=== PATIENT | female | born 1995 | race Caucasian/White ===

== ENCOUNTER 2018-02-05 19:22 | Emergency (ER) | payer OTHER ==
[~2018-02-05] VITALS: Ht 157.5 cm; Wt 63.2 kg
[2018-02-05 19:27] VITALS: Ht 157.5 cm; Wt 63.2 kg
[2018-02-05 20:31] VITALS: TEMP 36.6
[2018-02-05] MEDS ORDERED: BCPILLS PO (21:35)
[2018-02-05] MEDS ORDERED: DULO-24 PO (21:35)
[2018-02-05] MEDS ORDERED: CEFTRIAXONE SOD 350MG/ML 1 GM VIAL IM STA (23:08)
[2018-02-05] MEDS ORDERED: EMTRICITABINE/TENOFOVIR TAB PO STA (23:08)
[2018-02-05] MEDS ORDERED: METRONIDAZOLE 250 MG TAB PO STA (23:08)
[2018-02-05] MEDS ORDERED: AZITHROMYCIN 250 MG TAB PO STA (23:08)
[2018-02-05] MEDS ORDERED: RALTEGRAVIR POTASSIUM TAB 400 MG TAB PO STA (23:08)
[2018-02-05] MEDS ORDERED: LEVONORGESTREL (EMERGENCY OC) 1.5 MG TAB PO STA (23:08)
[2018-02-05] MEDS ORDERED: METRONIDAZOLE 250 MG TAB PO ONE (23:15)
[2018-02-05] MEDS ORDERED: PHENERGAN 25MG HOMEPACK PO ONE (23:15)
[2018-02-05] MEDS ORDERED: PROMETHAZINE HCL 25 MG TAB PO ONE (23:15)
[2018-02-05] MEDS ORDERED: HIV POST EXPOSURE PROPHYLAXIS KIT ONE (23:34)
[2018-02-05] MEDS ORDERED: EMPTY 8 DRAM VIAL ONE (23:38)
[2018-02-06] MEDS ORDERED: PROM25TA9 PO (00:20)
[2018-02-06] MEDS ORDERED: TRVHP PO (00:20)
[2018-02-06] MEDS ORDERED: RALT400T PO (00:20)
[2018-02-06] MEDS ORDERED: ONDANSETRON 4MG OD TAB ONE (00:26)
[2018-02-06 00:50] VITALS: BP 146/99; PULSE 78; O2SAT 97
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
== END 2018-02-06 00:52 | disposition home or self-care (01) ==
LOC: C.EDB 19:24 → C.EDC 02-06 00:52
DX: T76.21XA Adult sexual abuse, suspected, initial encounter (principal); T14.8XXA Other injury of unspecified body region, initial encounter; X58.XXXA Exposure to other specified factors, initial encounter; Z79.3 Long term (current) use of hormonal contraceptives; Z79.899 Other long term (current) drug therapy